=== PATIENT | male | born 1945 | race Caucasian/White ===

== ENCOUNTER → 2016-12-03 | Outpatient (REF) | payer MEDICARE | LOC: M LAB REF 13:14 | PROVIDERS: ATTEND Otolaryngology | DX: R22.1 Localized swelling, mass and lump, neck (principal); K11.20 Sialoadenitis, unspecified ==

== ENCOUNTER → 2016-12-11 | Outpatient (CLI) | payer MEDICARE ==
[2016-12-11 16:18] LABS: BLOOD UREA NITROGEN 15 MG/DL (7-18); CREATININE FOR GFR 0.86 MG/DL (0.70-1.30); GLOMERULAR FILTRATION RATE > 60.0 (>42)
== END ==
LOC: M LAB 15:24
PROVIDERS: ATTEND Otolaryngology
DX: R22.1 Localized swelling, mass and lump, neck (principal)

== ENCOUNTER → 2016-12-17 | Outpatient (CLI) | payer MEDICARE ==
[~2016-12-17] MED LIST: ISOVUE-370 76% 100ML VIAL (Q9967) As Ordered ONE
--- NOTE | 2016-12-17 08:53 | REP ---
CT NECK WITH CONTRAST: HISTORY: Localized swelling contrast Isovue 370, 75 mL. Calcifications are present in the left tonsil. This is secondary to previous inflammatory disease. The naso-, aaron-, and hypopharynx, larynx and subglottic trachea are otherwise normal in appearance. There are several punctate calcifications are present in the parotid glands. The parotid glands are normal in size. The submandibular and thyroid glands are normal in size and density. Small lymph nodes less than 1 cm in size are present in the internal jugular chains, posterior triangles, submandibular and submental areas. Atherosclerotic calcification is present at the carotid bifurcations. Degenerative change is present in the cervical spine. The lung apices are clear. Minimal mucosal thickening is present in the ethmoid and maxillary sinuses. IMPRESSION: There is no neck mass or adenopathy. Signed by Adam Jaimes MD 12/17/2016 09:02 A
== END ==
LOC: M RAD 07:40
PROVIDERS: ATTEND Otolaryngology
DX: R22.9 Localized swelling, mass and lump, unspecified (principal)
CPT/HCPCS: 70491; Q9967

== ENCOUNTER → 2024-11-12 | Outpatient (CLI) | payer MEDICARE ==
[2024-11-12 12:43] LABS: BASO # 0.1 10^3/uL (0.0-0.2); BASO % 1.4 % (0.0-1.0); EOS # 0.2 10^3/uL (0.0-0.5); EOS % 4.1 % (0.0-3.0); LYMPH # 2.5 10^3/uL (1.5-5.0); LYMPH % 43.0 % (24.0-44.0); MONO # 0.5 10^3/uL (0.0-0.8); MONO % 8.3 % (2.0-8.0); NEUTROPHILS # 2.5 10^3/uL (1.5-8.5); NEUTROPHILS % 42.7 % (36.0-66.0); PLATELET COUNT, AUTOMATED 225 10^3/uL (150-450)
[2024-11-12 12:49] LABS: APPEARANCE, URINE CLEAR (CLEAR); BACTERIA, URINE AUTO NEGATIVE (NEGATIVE); BILIRUBIN, URINE AUTO NEGATIVE (NEGATIVE); BLOOD, URINE BLOOD NEGATIVE (NEGATIVE); GLUCOSE, URINE (UA) AUTO NEGATIVE (NEGATIVE); KETONE, URINE AUTO NEGATIVE (NEGATIVE); LEUKOCYTE ESTERASE, URINE AUTO 3+ (NEGATIVE); MUCUS, URINE SMALL (NEGATIVE); NITRITE, URINE AUTO NEGATIVE (NEGATIVE); PROTEIN, URINE AUTO NEGATIVE (NEGATIVE); RBC, URINE AUTO 3 /HPF (0-3); SPECIFIC GRAVITY URINE AUTO 1.015 (1.002-1.035); SQUAMOUS EPITHELIAL CELL UR AU 0 /HPF (0-6); UROBILINOGEN, URINE AUTO 0.2 mg/dL (0.0-2.0); WBC, URINE AUTO 6 /HPF (0-3)
[2024-11-12 12:50] LABS: ESTIMATED AVERAGE GLUCOSE 137.0 MG/DL (60-110)
[2024-11-12 13:08] LABS: ALT/SGPT 28 U/L (7.0-40); AST/SGOT 25 U/L (<34); CALCIUM LEVEL 8.9 MG/DL (8.3-10.6); CARBON DIOXIDE LEVEL 28 MMOL/L (20-31); CHLORIDE LEVEL 105 MMOL/L (98-107); CHOLESTEROL LEVEL 155 MG/DL (<200); CHOLESTEROL RISK RATIO 3.64 (<5); CREATININE FOR GFR 0.72 MG/DL (0.70-1.30); GLOMERULAR FILTRATION RATE > 90.0 (>42); LDL CHOLESTEROL 84.3 MG/DL (<100); NON-HDL-C 112.5 MG/DL; POTASSIUM SERUM 4.0 MMOL/L (3.5-5.1); SODIUM LEVEL 143 MMOL/L (136-145); TRIGLYCERIDES LEVEL 141 MG/DL (<150)
== END ==
LOC: M WUC 09:44
PROVIDERS: ATTEND Family Medicine
DX: E11.9 Type 2 diabetes mellitus without complications (principal); I10 Essential (primary) hypertension; E78.5 Hyperlipidemia, unspecified